=== PATIENT | male | born 1950 | race African-American/Black ===

== ENCOUNTER → 2016-03-16 | Day surgery (SDC) | payer OTHER, MEDICARE ==
[~2016-03-16] VITALS: Ht 182.9 cm; Wt 79.4 kg
[~2016-03-16] MED LIST: DULOXETINE HCL60 MG PO; GABAPENTIN300 MG PO; JANUMET 500 MG-1 TAB PO; METRONIDAZOLE250 MG PO; OSCIMIN0.125 M1 PO; PRINIVIL5 M1 PO; SIMVASTATIN40 MG PO
--- NOTE | 2016-03-16 13:46 | Operative Report ---
Operative/Inv Procedure Report Surgery Date: 03/16/16 Name of Procedure: Left foot hallux rigidus correction with implant Pre-Operative Diagnosis: Hallux rigidus left foot Post-Operative Diagnosis: Hallux rigidus left foot Estimated Blood Loss: dania Surgeon/Legal Biller: SARAI ADAIR DPM Anesthesia: local monitored anesthesi Implants: BoardEvals Abernathy great toe implant Specimens: Bone left foot Tourniquet: Left ankle at 250 mmHg for 48 minutes Complications: None apparent Condition: Stable Operative Indication: Arthritis left first metatarsophalangeal joint. Operative/Procedure Note Note: Patient is a 66-year-old male with hallux rigidus valgus deformity left foot not responsive to conservative treatment. After discussion of risks, benefits, and alternatives, with the patient including possibility of pain, scarring, swelling , delayed healing, recurrence, need for further surgery, and loss of limb or life, informed consent was obtained for planned, staged operative treatment of his left foot. After identifying the correct operative site patient was transported to the operating room and placed on table in supine position. Prophylactic intravenous antibiotics were provided and a well-padded tourniquet was applied to the left ankle. Following intravenous sedation local anesthesia was obtained about the left forefoot utilizing 20 mL's of 0.5% Marcaine plain. Left foot was then scrubbed prepped and draped in the usual aseptic fashion. An incision was then fashioned along the dorsomedial aspect of the first metatarsophalangeal joint in a longitudinal orientation relative to the tendon of the extensor hallucis longus. Incision was deepened through the subcutaneous tissues utilizing blunt and sharp dissection technique. Care was taken at all times not to hazard any vital neurovascular structures. All bleeders were ligated and cauterized as necessary. First metatarsophalangeal joint capsule was incised at this time along its dorsal medial aspect with capsular and periosteal structures reflected medially and laterally. First metatarsophalangeal joint demonstrated advanced degenerative changes with hypertrophic bone formation at the joint margins. Sagittal saw was utilized to resect hypertrophic bone from the dorsal medial aspects of the first metatarsal head. Sagittal saw was then utilized to transect the base the proximal phalanx of the hallux as well as to resect the distal first metatarsal head in a planar fashion. Resected fragments of bone were freed and passed from the operative field. Base of the proximal phalanx of the hallux and the distal first metatarsal were then reamed in a sequential fashion utilizing instrumentation from the [facility] Abernathy great toe implant system. Upon completion of reaming a size 2S trial implant was noted to fit well within the joint space. Subsequently the surgical site was copiously irrigated with sterile normal saline and a BoardEvals size 2 Abernathy great toe implant was inserted at the operative site utilizing included metallic grommets according to manufacture protocol. Range of motion and alignment of the great toe was noted be satisfactory. Contracted extensor hallucis longus tendon was lengthened in a Z- type fashion and repaired under physiologic tension utilizing 2-0 Vicryl suture material. Implant alignment was noted be satisfactory via direct visualization and fluoroscopic assessment. Capsular structures were reapproximated and coapted utilizing 2-0 Vicryl suture material. Subcuticular closure was achieved with 4-0 Vicryl suture material. Skin was closed utilizing 4-0 nylon suture material in a running interlocking technique. Surgical sites were dressed with Adaptic followed outpatient gauze 4 x 4's and a roll bandage to the foot. Prompt hyperemic response was noted to all digits upon release the tourniquet and subsequently a well-padded plaster slipper cast was applied to the left foot. Patient was transported from the operating room in good condition to recovery. Findings: Arthritis Discharge Disposition: PACU
== END ==
LOC: STS 02:50
DX: M20.22 Hallux rigidus, left foot (principal); M19.072 Primary osteoarthritis, left ankle and foot; E11.49 Type 2 diabetes mellitus with other diabetic neurological complication; Z79.84 Long term (current) use of oral hypoglycemic drugs; I10 Essential (primary) hypertension; F17.200 Nicotine dependence, unspecified, uncomplicated
CPT/HCPCS: 88304; J0131; J0690; J2250

== ENCOUNTER → 2017-05-17 | Day surgery (SDC) | payer OTHER, MEDICARE ==
[~2017-05-17] VITALS: Ht 182.9 cm; Wt 80.7 kg
[~2017-05-17] MED LIST changes: +CENTRUM MULTIG80 MCG PO; +GLIMEPIRIDE2 MG PO; +JANUMET 50-1,01 EACH PO; +JARDIANCE10 M1 PO; +SIMVASTATIN40 M1 PO; -SIMVASTATIN40 MG PO
--- NOTE | 2017-05-17 13:19 | Operative Report ---
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 digits with fifth metatarsal deformity right foot Post-Operative Diagnosis: Same as above Estimated Blood Loss: scant Surgeon/Obstetrics Nurse Practitioner: Sandeep Hardy DPM Anesthesia: local monitored anesthesi Specimens: Bone right foot Tourniquet: Pneumatic ankle tourniquet at 250 mmHg for 29 minutes Complications: None apparent Condition: Stable Operative Indication: Symptomatic deformity right foot second and fifth toes with tailor's bunion deformity right foot Operative/Procedure Note Note: Patient is a 67-year-old diabetic male with history of recurrent pre-trophic area lesions right second and fifth toes as well as symptomatic tailor's bunion deformity right foot. After discussion of risks, benefits, and alternatives with the patient, including possibility of pain, scarring, swelling, delayed healing, recurrence, need for further surgery, and loss of limb or life informed consent was obtained for planned staged operative treatment of his right foot deformity. After identifying the correct operative site patient was transported to the operating room and placed on table in supine position. Prophylactic intravenous antibiotics were provided and a well-padded tourniquet was applied to the right ankle. Following IV sedation local anesthesia was obtained about the right forefoot utilizing 20 mL's of 0.5% Marcaine plain. The right foot was then scrubbed prepped and draped in the usual aseptic fashion. Attention was then directed to the right second toe where an incision was fashioned over the dorsal aspect of the digit and a longitudinal orientation and deepened through the subcutaneous tissues utilizing blunt and sharp dissection technique. Extensor tendon apparatus was transected at the level of proximal interphalangeal joint and reflected proximally. The head of the proximal phalanx was delivered dorsally and transected with the sagittal saw. Surgical site was irrigated with sterile normal saline and the extensor tendon apparatus was reapproximated with 3-0 Vicryl suture material. Skin closure was achieved with 4-0 nylon suture material in interrupted suture technique. Attention was then directed to the right fifth toe where 2 semielliptical incisions were fashioned over the dorsal lateral aspect of the digit with intralesional tissue resected and passed from the operative field. Extensor tendon apparatus was transected at the level of proximal interphalangeal joint and the head of the proximal phalanx was delivered dorsally was transected with the sagittal saw. Resected fragment was freed and passed from the operative field surgical site was irrigated with sterile normal saline and the extensor tendon apparatus was reapproximated with 3-0 Vicryl suture material. Skin closure was achieved with 5-0 nylon suture material in a simple interrupted technique. Attention was then directed to the fifth metatarsophalangeal joint where a curvilinear incision was fashioned over the dorsal lateral aspect of the digit and deepened through subcutaneous tissues. Again was care was taken not to hazard any vital neurovascular structures and all bleeders were ligated and cauterized as necessary. At this time the fifth metatarsophalangeal joint was incised along its dorsal lateral aspect with capsular and periosteal structures reflected medially and laterally. Hypertrophy of the fifth metatarsal head was noted to be present as well as degenerative changes within the articular surface. At this time the sagittal saw was utilized to transect the distal fifth metatarsal in a triplanar orientation with the resected fragment freed and passed from the operative field for pathologic evaluation. Surgical site was irrigated with sterile normal saline. Capsular closure was achieved with 3-0 Vicryl suture material. Skin closure was achieved with 4-0 nylon suture material in a running interlocking technique. Surgical incisions were then dressed with Xeroform gauze followed by application of gauze 4 x 4's and roll bandage to the foot. Prompt hyperemic response was noted to all digits upon release the tourniquet and subsequently a well-padded plaster slipper cast was applied to the right foot. Patient tolerated procedure and anesthesia well and was transported from the operating room in good condition. Findings: Deformity right second and fifth toes as well as degenerative changes right fifth metatarsophalangeal joint. Discharge Disposition: Same Day Admissions
== END ==
LOC: STS 02:44
DX: M20.41 Other hammer toe(s) (acquired), right foot (principal); M21.6X1 Other acquired deformities of right foot; E11.9 Type 2 diabetes mellitus without complications; Z79.4 Long term (current) use of insulin; I10 Essential (primary) hypertension; F17.200 Nicotine dependence, unspecified, uncomplicated; M19.90 Unspecified osteoarthritis, unspecified site
CPT/HCPCS: 88304; J0690; J2250; J3490